=== PATIENT | male | born 1950 | race Caucasian/White ===

== ENCOUNTER 2017-07-19 12:40 | Inpatient (IN) | payer MEDICARE, BC ==
[2017-07-19] MEDS ORDERED: NS 0.9% 1000 ML* 1,000 ML IV SCH (13:45)
[2017-07-19 14:39] LABS: Urine Bacteria Absent (Absent); Urine Bilirubin Negative (Negative); Urine Glucose Negative (Negative); Urine Nitrite Negative (Negative)
[2017-07-19] MEDS ORDERED: Ondansetron INJ* 2 MG/ML VIAL IV PRN (14:48)
[2017-07-19] MEDS ORDERED: Albuterol 2.5 MG/3 ML NEB.SOL* (0.083%) INH PRN (14:51)
[2017-07-19 15:37] LABS: Hematocrit 37 % (42-52); Hemoglobin 12.1 g/dl (14.0-18.0); Mean Corpuscular HGB Conc 33 g/dl (31-36); Mean Corpuscular Hemoglobin 30 pg (27-31); Mean Corpuscular Volume 92 fL (80-94); Mean Platelet Volume 7 um3 (7.4-10.4); Red Cell Distribution Width 17 % (10.5-15); White Blood Count 8.9 10^3/ul (3.5-10.8)
--- NOTE | 2017-07-19 15:39 | RAD ---
INDICATION: Altered mental status COMPARISON: CT of the brain from the same date from an outside institution. TECHNIQUE: Contiguous axial sections of the brain were obtained from the skull base to the vertex without contrast. FINDINGS: The ventricles, cisterns and sulci are within normal limits. The hampton-white matter differentiation is adequately maintained and there is no sulcal effacement. No significant focal abnormality or mass effect is present. There is no evidence for intracranial hemorrhage. No significant focal osseous abnormality is present. There is mild mucosal thickening of the left maxillary sinus. IMPRESSION: Mild paranasal sinus mucosal thickening in this otherwise normal CT of the brain.
--- NOTE | 2017-07-19 15:44 | RAD ---
INDICATION: Shortness of breath. COMPARISON: None. TECHNIQUE: Single AP portable view of the chest was obtained. FINDINGS: Image quality is compromised due to the relative inferiority of a portable chest x-ray. The heart and mediastinum exhibit normal size and contour. There is faint linear density at the left lung base and to a lesser extent the medial aspect of the right lung base. The lungs are otherwise adequately aerated. The pulmonary vasculature is slightly engorged and indistinct. This is similar in appearance to the prior chest x-ray downloaded from an outside institution of an unknown date. Visualized bones are normal for the patient's age. IMPRESSION: In the correct clinical setting chest x-ray findings could be compatible with pulmonary edema.
[2017-07-19 15:46] LABS: Anion Gap 7 mmol/L (2-11); BUN/Creatinine Ratio 17.9 (8-20); Blood Urea Nitrogen 56 mg/dL (6-24); C Reactive Protein 40.87 mg/L (< 5.00); CO2 Carbon Dioxide 28 mmol/L (22-32); Calcium 9.2 mg/dL (8.6-10.3); Chloride 101 mmol/L (101-111); EGFR African American 25.7 (>60); Glucose 105 mg/dL (70-100); Potassium 3.5 mmol/L (3.5-5.0); Sodium 136 mmol/L (133-145)
[2017-07-19 16:09] LABS: ALT 19 U/L (7-52); AST 47 U/L (13-39); Albumin 2.7 g/dL (3.2-5.2); Alkaline Phosphatase 73 U/L (34-104); Globulin 4.9 g/dL (2-4); Indirect Bilirubin 0.8 mg/dL (0.3-1.0); Total Protein 7.6 g/dL (6.4-8.9)
[2017-07-19 16:26] LABS: Folate 10.86 ng/mL (>3.99)
[2017-07-19 16:27] LABS: Vitamin B12 > 1450 pg/mL (180-914)
[2017-07-19 16:31] LABS: Erythrocyte Sed Rate 84 mm/Hr (0-40)
[2017-07-19] MEDS: Mometasone 220 MCG MDI INH SCH (18:10)
--- NOTE | 2017-07-19 18:55 | ED ---
Brittany Sales Abhishek, scribed for Ant Angela MD on 07/19/17 at 1330 . Neurological HPI - HPI Summary HPI Summary: This patient is a 66 year old M BIBA from [facility] accompanied by with a chief complaint of neurological deficit. Patient reports he has fallen once recently, but had previous falls in the past year. Patient s family/galley worker states patient fell in the kitchen and in the middle of night (0300) and patient was restless, agitated, bleeding from his elbow wrist and LE (scraped). Patients family/galley worker also reports edema on the right arm, poor memory, tremors, weakness, lack of sleep, intermittent confusion, edema at the ankles, deficits in motor capabilities, aphasia (searching for words) and worsening conditions of bradykinesia (slow motion movements) Onset was a few weeks ago but worse since a few days ago. MRI was ordered by Dr. Romero previously which had a normal impression. The patient rates the pain 0/10 in severity. Symptoms aggravated by nothing. Symptoms alleviated by nothing. Patient ambulates with a walker. - History of Current Complaint Chief Complaint: EDGeneral Stated Complaint: WEAKNESS Time Seen by Provider: 07/19/17 12:47 Hx Obtained From: Patient, Family/Screen Roller Onset/Duration: Gradual Onset, Started weeks ago - 2 weeks ago, Still Present, Worse Since - few days ago Timing: Constant Pain Intensity: 0 Pain Scale Used: 0-10 Numeric Character: Weak, Motor Weakness - bradykinesia, Impaired Speech - aphasia, Confusion, Other: - reports edema on the right arm and ankles, lack of sleep, poor memory and tremors Aggravating: Nothing Alleviating: Nothing Associated Signs and Symptoms: Positive: Confusion, Weakness, Impaired Speech - Allergy/Home Medications Allergies/Adverse Reactions: Allergies Allergy/AdvReac Type Severity Reaction Status Date / Time Statins Allergy Intermediate Muscle Ache Verified 07/14/17 09:55 JAIME Inhibitors Allergy KIDNEYS/HEA Verified 07/14/17 09:55 RT Niacin Allergy FEELS LIKE Verified 07/14/17 09:55 HE IS ON FIRE Quinolones Allergy HEART Verified 07/14/17 09:55 ARBS Allergy Unknown Uncoded 07/19/17 13:22 Reaction Details Home Medications: Home Medications Caltrate 600+D Plus [place] 600-800 mg-Unit 1 tab PO DAILY 07/19/17 [History Confirmed 07/19/17] Eszopiclone 1 mg PO DAILY 07/19/17 [History Confirmed 07/19/17] Qvar 80 MCG MDI(NF) 2 puff INH BID 07/19/17 [History Confirmed 07/19/17] Stiolto Respimat 2.5-2.5 Mcg/Act 2.5 mcg INH DAILY 07/19/17 [History Confirmed 07/19/17] Vitamin D2 1.25 mg PO WEEKLY 07/19/17 [History Confirmed 07/19/17] hydrOXYzine HCL TAB* 25 mg PO DAILY PRN 07/19/17 [History Confirmed 07/19/17] PMH/Surg Hx/FS Hx/Imm Hx Endocrine/Hematology History: Denies: Hx Diabetes Cardiovascular History: Reports: Hx Hypertension - CONTROLLED WITH MEDS Denies: Hx Pacemaker/ICD Respiratory History: Reports: Hx Chronic Obstructive Pulmonary Disease (COPD) History: Reports: Hx Renal Disease Sensory History: Denies: Hx Hearing Aid Psychiatric History: Denies: Hx Panic Disorder - Surgical History Surgery Procedure, Year, and Place: left knee replacement, colostomy and reversal,basal skin removals. POLYPS REMOVED FROM STOMACH/COLON/DUODENUM Infectious Disease History: No Infectious Disease History: Denies: Traveled Outside the [place] in Last 30 Days - Social History Alcohol Use: Daily Substance Use Type: Reports: None Smoking Status (MU): Never Smoked Tobacco Review of Systems Constitutional: Negative Eyes: Negative ENT: Negative Cardiovascular: Negative Respiratory: Negative Gastrointestinal: Negative Genitourinary: Negative Positive: Edema - edema at the ankles and right arm Skin: Negative Neurological: Other - deficits in motor capabilities (bradykinesia), confusion, tremors, and poor memory Positive: Weakness, Numbness, Slurred Speech Psychological: Normal All Other Systems Reviewed And Are Negative: Yes Physical Exam - Summary Physical Exam Summary: VITAL SIGNS: Reviewed. GENERAL: ~Patient is a well-developed and nourished elderly (MALE) who is lying comfortable in the stretcher. ~Patient is not in any acute respiratory distress. HEAD AND FACE: No signs of trauma. ~No ecchymosis, hematomas or skull depressions. No sinus tenderness. EYES: PERRLA, EOMI x 2, No injected conjunctiva, no nystagmus. No photophobia. EARS: Hearing grossly intact. Ear canals and tympanic membranes are within normal limits. MOUTH: Oropharynx within normal limits. NECK: Supple, trachea is midline, no adenopathy, no JVD, no carotid bruit, no c- spine tenderness, neck with full ROM. No meningeal signs, no Kernig's or brudzinskis signs. CHEST: Symmetric, no tenderness at palpation LUNGS: Clear to auscultation bilaterally. No wheezing or crackles. CVS: Sinus bradycardia ABDOMEN: Soft, non-tender. No signs of distention. No rebound no guarding, and no masses palpated. Bowel sounds are normal. EXTREMITIES: FROM in all major joints, no edema, no cyanosis or clubbing. NEURO: Alert and oriented x 3, Slow response SKIN: Dry and warm GCS: 15 Musculoskeletal" , 2+ edema in the lower extremity Triage Information Reviewed: Yes Vital Signs On Initial Exam: Initial Vitals Temp Pulse Resp BP Pulse Ox 97.3 F 69 20 121/75 98 07/19/17 12:43 07/19/17 12:43 07/19/17 12:43 07/19/17 12:43 07/19/17 12:43 Vital Signs Reviewed: Yes Diagnostics - Vital Signs Vital Signs Temp Pulse Resp BP Pulse Ox 07/19/17 12:43 97.3 F 69 20 121/75 98 - Laboratory Result Diagrams: 07/19/17 15:24 07/19/17 15:24 Lab Statement: Any lab studies that have been ordered have been reviewed, and results considered in the medical decision making process. - Radiology Chest X-ray Radiology Interpretation Completed By: Radiologist - CXR reveals, per radiologist, In the correct clinical setting chest x-ray findings could be compatible with pulmonary edema. ED physician has reviewed this radiology report and agrees. - CT Brain CT CT Interpretation Completed By: Radiologist - Brain CT reveals Mild paranasal sinus mucosal thickening in this otherwise normal CT of the brain. ED physician has reviewed this radiology report and agrees. Course/Dx - Course Assessment/Plan: This patient is a 66 year old M BIBA from [facility] accompanied by with a chief complaint of neurological deficit. Patient reports he has fallen once recently, but had previous falls in the past year. Patients family/galley worker states patient fell in the kitchen and in the middle of night (0300) and patient was restless, agitated, bleeding from his elbow wrist and LE (scraped). Patients family/galley worker also reports edema on the right arm, poor memory, tremors, weakness, lack of sleep, intermittent confusion , edema at the ankles, deficits in motor capabilities, aphasia (searching for words) and worsening conditions of bradykinesia (slow motion movements) Onset was a few weeks ago but worse since a few days ago. MRI was ordered by Dr. Romero previously which had a normal impression. We discussed with Dr. López who is covering for Dr. Romero and she recommends for the patient to be admitted to the hospitalist, a possible MRI of the brain and she will check in the following morning. The blood work was done at [facility] and showed dehydration and acute and chronic renal failure. The patient will be given IV fluids and the patient continues to be hemodynamically Stable. I discussed physical findings and recommendation from Dr. López with Dr. Lyons, and she accepted the patient for admission and the diagnosis will be acute changes in mental status, dehydration, acute and chronic renal failure. - Differential Dx Differential Diagnoses Neuro: Positive: Cerebrovascular Accident, Seizure Disorder, Transient Ischemic Attack - Diagnoses Provider Diagnoses: Altered mental status, Dysphagia, Weakness - Physician Notifications Discussed Care Of Patient With: Sheree Lyons Time Discussed With Above Provider: 13:40 Instructed by Provider To: Admit As Inpatient Discharge - Discharge Plan Condition: Stable Disposition: ADMITTED TO [facility] The documentation as recorded by the Brittany davalos Abhishek accurately reflects the service I personally performed and the decisions made by me, Ant Angela MD.
--- NOTE | 2017-07-19 20:54 | HP ---
CC: Dr. Shepard ; Dr. López; Dr. Romero * HISTORY AND PHYSICAL: DATE OF ADMISSION: 07/19/17 PRIMARY CARE PROVIDER: Dr. Shepard, [facility] ATTENDING PHYSICIAN WHILE IN THE HOSPITAL: Dr. Kiarra Garces * *(report dictated by Jose Durham NP). CONSULTING NEUROLOGIST: Dr. López. CHIEF COMPLAINT: 1. Weakness. 2. Fall. HISTORY OF PRESENT ILLNESS: Mr. 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 He comes in today stating that about 3 o'clock in the morning, the patient sustained a fall. The called [facility]. They came and did a lift assist. He got back into his chair, but the noted that later on in the morning, about an hour or two later, he was getting up, acting confused, having some trouble with words, having trouble with memory. In addition to this, she noted that when he walked into a corner of the room, he could not figure out how to get out of the corner. She says that this was not her and he was obviously confused and she brought him into the hospital. More importantly though, over the last couple of months the patient has had a progressive worsening decline. He has had trouble walking. He has been shuffling more. He has had trouble lifting his legs at times. He has been having worsening numbness to his lower extremities. Also there has been some trouble with cognition. In addition, there is also trouble with memory loss, particularly short-term memory. The had sought care with Dr. Romero who they had seen in the past. An MRI was ordered outpatient which essentially showed diffuse involutional change. The patient was evaluated at [facility] and they were concerned that the patient might need a neurological evaluation, so he was sent here. There has been reports that the patient was having a worsening cough for the last few weeks. It has been productive of yellow sputum but no worsening shortness of breath. No fevers, no chills. There has been no dysuria or frequency. There has been no loss of consciousness , seizures or any chest pain. Because of the fact that it was felt that he would need neurology evaluation, he was sent to [facility]. We were asked to evaluate for admission. PAST MEDICAL HISTORY: Significant for: 1. Torres's. 2. COPD. 3. Neuropathy. 4. Diverticulitis. 5. KING. 6. GERD. 7. Hypertension. 8. Hyperlipidemia. 9. Right bundle branch block. 10. CKD stage 4. PAST SURGICAL HISTORY: The patient has had a: 1. Cholecystectomy. 2. He has had a left total knee replacement. 3. He has had an appendectomy. 4. He has also had a colostomy with reversal. MEDICATIONS: Home meds according to the list that he provided include: 1. QVAR 2 puffs inhaled b.i.d. 2. Hydroxyzine 25 mg p.o. daily. 3. Vitamin D2, 1.25 mg p.o. weekly. 4. Eszopiclone 1 mg at bedtime. 5. Stiolto Respimat 2.5 mcg daily. 6. Caltrate with vitamin D 1 tablet p.o. daily. 7. Fenofibric acid 48 mg p.o. daily. 8. Lovaza 1 g p.o. b.i.d. 9. Spironolactone 25 mg daily. 10. Synthroid 137 mcg daily. 11. Aspirin 81 mg daily. 12. Gabapentin 200 mg daily. 13. Amiodarone 20 mg daily. 14. B12, 1000 mcg p.o. daily. 15. Zetia 10 mg p.o. daily. 16. Carvedilol 12.5 mg p.o. b.i.d. 17. Ventolin 2.5 mg inhaled 4 times a day as needed. 18. Potassium chloride 20 mEq p.o. daily. 19. Furosemide 80 mg p.o. b.i.d. 20. Flonase 50 mcg nasally daily. 21. Protonix 40 mg daily. 22. Allopurinol 300 mg daily. ALLERGIES TO MEDICATIONS: Include STATINS, JAIME INHIBITORS, NIACIN, QUINOLONES, and ARBs. FAMILY HISTORY: Essentially was reviewed, noncontributory. There was no report of neurological diseases in the family. No reports of MIs. SOCIAL HISTORY: The patient does not smoke. He does not drink. He lives with his . Surrogate decision maker is his . REVIEW OF SYSTEMS: There is no documented fever. He denied having any significant weight change. There was no double vision. He denies having any ear discharge. There is no rhinorrhea. No sore throat. No thyroid enlargement. Denied having any chest pain. No orthopnea. No nocturnal dyspnea. There is no abdominal pain. No nausea. No vomiting. No dysuria. No frequency. No seizure. No loss of consciousness. No pruritus and no skin ulcerations. Review of 14 systems completed, all others negative. PHYSICAL EXAMINATION GENERAL: At this time, Mr. Medellin is a 66-year-old male patient. He is sitting in the ER stretcher. He does not appear to be in any acute distress. VITAL SIGNS: Blood pressure 106/59, pulse 77, respirations 20, O2 sat 98%, and temperature 97.3. HEENT: Head: Atraumatic, normocephalic. Eyes: EOMs are intact. Sclerae anicteric and not pale. Throat: Oral mucosa appears to be dry. No oropharyngeal erythema. NECK: Supple. LUNGS: Clear to auscultation bilaterally. No wheezes, rales, or rhonchi. HEART: Sounds S1, S2. Regular rate and rhythm. No murmurs, rubs, or gallops. ABDOMEN: Soft, flat, nontender. Bowel sounds present. EXTREMITIES: Pulses were 2+ throughout. He did have +2 pitting edema bilaterally. He had 5/5 strength in the lower extremities with plantar and dorsiflexion of the ankle and about 4/5 strength lifting the legs off the bed. He did have 5/5 strength with flexion and extension of the knee. NEUROLOGIC: He is awake, he is alert. He knows where he is. He is oriented to place, time, and self. His ehs engineer were equal. His tongue was midline. Finger to nose was intact bilaterally. He had decreased sensation bilaterally in the lower extremities particularly in his feet. He had no facial drooping. His speech was clear. It was delayed, but it was appropriate. He had no gross obvious focal deficits. He did have trouble with short-term memory. He did tell me twice and forgot that he had told me once already that he was not diagnosed with Parkinson's. SKIN: Intact. DIAGNOSTIC STUDIES/LAB DATA: UA here today is negative. He did have WBC of 8.0, RBC 3.94, hemoglobin of 11.9, hematocrit 35.6, platelet count of 283,000. His glucose was 145, BUN 59, creatinine was 3.5. Apparently, his last creatinine was 3.1. Sodium was 136, potassium 3.9, chloride of 102, bicarb 26, albumin was 2.1. CK was normal at 62. Troponin was negative. pH 7.49, pCO2 was 35. He apparently had an EKG over at [facility] which showed a right bundle branch block, rate of 60. No ST elevations or T-wave inversions were noted. There was a CT brain, impression: No acute disease. He had a chest x-ray as well, which showed poor inspiration and bibasilar atelectasis. Old medical records were reviewed. ASSESSMENT AND PLAN: Mr. Medellin is a 66-year-old male patient with complex medical history coming into the ER today with falls and weakness. He will admitted under observation status for: 1. Altered mental status and weakness. It seems he has been getting progressively worse in the last couple of months and today, it seemed to be much worse. The differential is broad here. He certainly could have a metabolic process or infectious process going on. Plan is to check his urine and I am going to repeat the x-ray as it was a poor film. We will get a repeat CT of the brain as when I looked at it, it does look like he has calcifications in the ventricles, but I want to make sure that it is stable and there is no intracranial hemorrhage or bleeding which I do not think there is, because he is nonfocal on exam and he is answering questions appropriately and does not appear to be somnolent, but I would like to repeat this. We will get an MRI of the brain per recommendations of Dr. López. In addition to this, we will get neuro checks every 2 hours. We will check sputum and rapid flu swab as well, as he has been coughing a little bit more. I do not think he needs antibiotics just yet. If he spikes a fever, I will put him on antibiotics. We will go ahead and get a B12, folate level, ESR, CRP as well and we will follow him closely. 2. Neuropathy. Continue with the meds as prescribed. 3. Obstructive sleep apnea. I stressed the importance of him using his CPAP, but he says its mask is not comfortable. 4. Chronic obstructive pulmonary disease. We will continue meds as prescribed. 5. Neuropathy. Continue meds as prescribed. 6. Gastroesophageal reflux disease. Continue PPI therapy. 7. Hyperlipidemia. Continue his current medical regimen. 8. Hypertension. Continue meds as prescribed. 9. Chronic kidney disease. We will follow his creatinine. He does appear to be a little dry. He got fluids in [facility], so I am going to hold his diuretics now and we can probably restart them tomorrow depending on what his labs show in the morning. 10. Code status, full code. 11. Fluids, electrolytes, nutrition. He can have a heart healthy diet. 12. DVT prophylaxis. He will be placed on SCDs until the repeat CAT scan. TIME SPENT: Time spent on the admission was approximately 60 minutes; greater than half the time was spent [id number] with the patient obtaining my history and physical, other half of the time spent going over the plan of care with the patient and implementing plan of care. I did discuss plan of care with my attending, Dr. Garces, she is in agreement. JOSE DURHAM, TUBE SIZER AND CUTTER OPERATOR [id number]/CPS #: [id number] HECTOR
[2017-07-19] MEDS ORDERED: BECLOMETHASONE 80 MCG INH SCH (21:00)
[2017-07-19] MEDS: Carvedilol TAB* 25 MG PO SCH (21:25)
[2017-07-20] MEDS: Acetaminophen TAB* 325 MG PO PRN (03:47)
[2017-07-20] MEDS: Levothyroxine TAB* 137 MCG TAB PO SCH (05:20)
[2017-07-20 05:33] LABS: Hematocrit 33 % (42-52); Hemoglobin 10.7 g/dl (14.0-18.0); Mean Corpuscular HGB Conc 33 g/dl (31-36); Mean Corpuscular Hemoglobin 30 pg (27-31); Mean Corpuscular Volume 91 fL (80-94); Mean Platelet Volume 8 um3 (7.4-10.4); Red Blood Count 3.59 10^6/ul (4.0-5.4); Red Cell Distribution Width 17 % (10.5-15); White Blood Count 8.2 10^3/ul (3.5-10.8)
[2017-07-20 06:06] LABS: BUN/Creatinine Ratio 17.7 (8-20); Calcium 8.6 mg/dL (8.6-10.3); EGFR African American 27.5 (>60); EGFR Non-African American 21.4 (>60); Potassium 3.2 mmol/L (3.5-5.0)
[2017-07-20] MEDS ORDERED: Potassium Chlor TAB* 20 MEQ TAB.ER PO ONE (07:29)
[2017-07-20] MEDS: Amiodarone TAB* 200 MG PO SCH (08:00)
[2017-07-20] MEDS: Fluticasone NASAL SPRAY 50MCG* 16 gm SPRAY BTL NASAL SCH (08:00)
[2017-07-20] MEDS: Allopurinol TAB* 300 MG PO SCH (08:00)
[2017-07-20] MEDS: Gabapentin CAP(*) 100 MG PO SCH (08:01)
[2017-07-20] MEDS: Omeprazole CAP* 20 MG PO SCH (08:01)
[2017-07-20] MEDS: Carvedilol TAB* 25 MG PO SCH ×2 (08:02→20:54)
[2017-07-20] MEDS: Ezetimibe TAB* 10 MG PO SCH (08:03)
[2017-07-20] MEDS ORDERED: Aspirin EC TAB* 325 MG PO SCH (09:00)
[2017-07-20] MEDS: STIOLTO RESPIMAT INH SCH (11:11)
--- NOTE | 2017-07-20 11:31 | PN ---
Subjective Date of Service: 07/20/17 Interval History: This is a 66 yo gentleman with a h/o Aamir's with associated CKD and peripheral neuropathy who has had some progressively worsening symptoms including confusion and increasing weakness. His symptoms had become dramatically worse in the 2 days leading up to his admission and he was transferred from [facility] for neurologic evaluation. He was started on lactulose yesterday evening when his ammonia level was noted to be moderately elevated. This am, patient feels slightly better. States that he is able to navigate the use of a walker and his mental status is slightly improved. Denies JOHN, vision changes, abdominal pain, n/v. He has had multiple loose BMs since starting the lactulose. He and his report that he has received the diagnosis of cirrhosis and has been seen by sandfill operator, Dr Alves, out of [place]. Objective Active Medications: Acetaminophen (Tylenol Tab*) 650 mg PO Q4H PRN PRN Reason: FEVER/PAIN Last Admin: 07/20/17 03:47 Dose: 650 mg Albuterol (Ventolin 2.5 Mg/3 Ml Neb.Cinthia*) 2.5 mg INH QID PRN PRN Reason: rescue inhaler Allopurinol (Zyloprim Tab*) 300 mg PO DAILY [facility] Last Admin: 07/20/17 08:00 Dose: 300 mg Amiodarone HCl (Cordarone Tab*) 200 mg PO DAILY [facility] Last Admin: 07/20/17 08:00 Dose: 200 mg Aspirin (Ecotrin Ec Tab*) 81 mg PO DAILY [facility] Carvedilol (Coreg Tab*) 12.5 mg PO BID [facility] Last Admin: 07/20/17 08:02 Dose: 12.5 mg Cetirizine HCl (Zyrtec*) 10 mg PO DAILY [facility] PRN Reason: Protocol Ezetimibe (Zetia Tab*) 10 mg PO DAILY [facility] Last Admin: 07/20/17 08:03 Dose: 10 mg Fluticasone Propionate (Flonase Nasal [place] 50mcg*) 1 spray NASAL DAILY [facility] Last Admin: 07/20/17 08:00 Dose: 1 spray Gabapentin (Neurontin Cap(*)) 200 mg PO DAILY [facility] Last Admin: 07/20/17 08:01 Dose: 200 mg Lactulose (Lactulose*) 15 ml PO TID [facility] Levothyroxine Sodium (Synthroid Tab*) 137 mcg PO 0600 [facility] Last Admin: 07/20/17 05:20 Dose: 137 mcg Mometasone Furoate (Asmanex 220 Mcg Mdi *) 2 puff INH QPM [facility] Last Admin: 07/19/17 18:10 Dose: 2 puff Stiolto Respimat 2.5 -2.5 Mcg/Act ( Tiotropium And Olodaterol) 2.5 mcg INH DAILY [facility] Last Admin: 07/20/17 11:11 Dose: Not Given Omeprazole (Prilosec Cap*) 20 mg PO DAILY [facility] Last Admin: 07/20/17 08:01 Dose: 20 mg Ondansetron HCl (Zofran Inj*) 4 mg IV Q6H PRN PRN Reason: NAUSEA Vital Signs: Temp Pulse Resp BP Pulse Ox 97.7 F 57 18 129/63 99 07/20/17 10:53 07/20/17 10:53 07/20/17 10:53 07/20/17 10:53 07/20/17 10:53 Oxygen Devices in Use Now: None Appearance: Alert and somewhat chronically ill appearing gentleman accompanied by his and in NAD Respiratory: Symmetrical Chest Expansion and Respiratory Effort, Clear to Auscultation Cardiovascular: NL Sounds; No Murmurs; No JVD, RRR Abdominal: NL Sounds; No Tenderness; No Distention Extremities: - - 1+ LE edema Neurological: Alert and Oriented x 3, - - alert, speech somewhat slowed with slowed response times Result Diagrams: 07/20/17 04:47 07/20/17 04:47 Microbiology and Other Data: Microbiology 07/19/17 16:35 Gram Stain - Final Sputum Expectorated 07/19/17 15:23 Nasal Screen MRSA (PCR)(SHAUN) - Final Nasal Mrsa Negative 07/19/17 14:26 Legionella Urinary Antigen - Final Urine Negative Legionella Streptococcus pneumoniae Ag Screen - Final Negative S. pneumo Antigen 07/19/17 15:23 Influenza Types A,B Antigen (SHAUN) - Final Nasal Specimen received for Influenza A/B Molecular testing Assess/Plan/Problems-Billing Assessment: This is a 66 yo male with history of Aamir's with associated CKD III-IV, peripheral neuropathy, COPD, KING, anxiety, HTN, HLD, GERD who presented with c/ o increasing weakness and confusion. - Patient Problems (1) Encephalopathy Comment: Appreciate neurology's input Likely multifactorial due to liver disease and uremia Improving with reduction in diuretics and initiating lactulose There has been a question of Parkinson's disease, which may be responsible for some of his symptoms but empiric dopaminergic therapy is not recommended by neurology at this time due to his cognitive symptoms and other complicating medical problems (2) Cirrhosis Comment: Sounds like this is a relatively new diagnosis, but likely a large contributor to his current progressive symptoms Evidence of some chronic liver failure with elevated INR, low albumin but normal platelets (3) CKD (chronic kidney disease) Comment: Stage III-IV at baseline Associated with Kamilah's Cr slightly above baseline at admission Diuretics held, can resume at lower dose at discharge (4) Kamilah's syndrome Comment: Associated CKD (5) KING (obstructive sleep apnea) Comment: General compliance with CPAP, but unable to tolerate recently Cont Flonase and start antihistamine to see if his congestion improves to the point that he can tolerate CPAP again (6) Hypertension Comment: Normotensive Home diuretics held, but otherwise cont usual antihypertensive medications (7) COPD (chronic obstructive pulmonary disease) Comment: No acute exacerbation (8) Hyperlipidemia (9) Full code status (10) DVT prophylaxis Comment: SQ heparin Status and Disposition: Transition to inpatient. Anticipate dc home tomorrow with home nursing services.
--- NOTE | 2017-07-20 12:08 | CONS ---
CC: Dr. Shepard; Dr. Romero * CONSULTATION REPORT: DATE OF CONSULTATION: 07/20/17 LOCATION: He is currently in room 439. REASON FOR CONSULTATION: Weakness and confusion. HISTORY OF PRESENT ILLNESS: Mr. Medellin is a very nice 66-year-old gentleman. He has multiple medical problems including Kamilah's granulomatosis with kidney involvement, chronic kidney disease, unclear of the baseline creatinine, but it appears it is below 3, COPD, neuropathy, diverticulitis, GERD, hypertension, obstructive sleep apnea previously on a CPAP, but unable to wear it for the last month, hyperlipidemia, right bundle branch block, and stage 4 kidney disease. He also has a history of heavy tobacco use, quit in the and a history of heavy alcohol use. He quit heavy drinking about a year ago, but has been drinking off and on till about November or December. He has been evaluated by Dr. Romero as an outpatient. He has been seen several times, most recently was seen several weeks ago and was found to be weakening, having difficulty with his gait, some confusion. There has been some question about Parkinson's disease in the past, but Dr. Romero felt like it was probably more related to a multifactorial metabolic encephalopathy given his chronic renal and liver disease as well as his neuropathy. An MRI was ordered. It was done on 07/16/17 several days prior to admission. The MRI was reviewed, shows no acute abnormality, shows some chronic age related atrophy that are diffuse in nature. He was to follow up with Dr. Romero but subsequently came to the hospital. His is at the bedside, who was able to provide me some supplemental history. She states that they moved into their new home approximately [id number]-half years ago in October 2015. At that time, he was having some difficulty walking. It seemed to be progressing and over the last year, she notes worsening walking, some mental status changes. He has fallen once in the past, but in the last month, he has had a more dramatic decline. His states that he has been much more confused at times that his gait has become much more tenuous. He is using a walker almost planning specialist at this point. He has had trouble getting up out of chairs and his states that he has not been acting his usual self. He does wear a CPAP normally, but in the last month has had most nasal stuffiness, has an appointment with an ENT, but has not been wearing his CPAP regularly. His feels like he has been more exhausted lately. He also is not on lactulose at home. He is followed for his kidney disease, but may have been dehydrated in the last several days. On the day of admission, he did fall at 3 in the morning, his tried to get him up , but was unable to. EMS was called and they were able to get him up and did not take him to the hospital. Later in the morning, his noted that he was trying to walk around and he would walk into a corner and sit there having difficulty moving. He was confused, very unsteady on his feet, seemed weaker and so she brought him to the ER. CT of the head was done, which showed no bleeding, no obvious acute changes. Some atrophy was noted. The patient states that he did not remember hitting his head. There was no loss of consciousness. He does not remember being lightheaded. No chest pain or shortness of breath at the time above his baseline. He was sitting in a chair in the kitchen when he tried to get up. He states the chair is leather and it is slippery and he may have slipped out of the chair, but in any event, could not get up from the floor. Denies any current pain. Does have an abrasion on his right leg. This morning, the nurse is at the bedside, his is at the bedside. The patient is able to converse and gives me some pretty good history , although may be slightly confused. His was able to supplement that history. Other than the fall, there has been no dramatic acute changes. It has been more of a slow steady decline, more rapid in the last month. There has been no reported fevers, chills, nausea or vomiting. He does have some urinary hesitancy. He has had some cough productive of yellow sputum but no fevers, no dysuria. There is no history of seizures reported. Initially, he was taken to [facility] from his home. He was subsequently transferred here for further workup. PAST MEDICAL HISTORY: As noted above. PAST SURGICAL HISTORY: Includes a colostomy with reversal appendectomy, left knee replacement, and cholecystectomy. MEDICATIONS AT HOME: Include: 1. QVAR 2 puffs inhale b.i.d. 2. Allopurinol 300 mg daily 3. Protonix 40 mg daily. 4. Flonase 50 mcg nasal daily. 5. Furosemide 80 mg p.o. b.i.d. 6. Potassium chloride 20 mEq p.o. daily. 7. Ventolin 2.5 mg inhaled 4 times a day. 8. Carvedilol 12.5 mg p.o. b.i.d. 9. Zetia 10 mg p.o. daily. 10. B12 1000 mcg p.o. daily. 11. Amiodarone 20 mg daily. 12. Gabapentin 200 mg daily. 13. Aspirin 81 mg daily. 14. Synthroid 137 mcg daily. 15. Spironolactone 25 mg daily. 16. Lovaza 1 g p.o. b.i.d. 17. Fenofibrate 48 mg p.o. daily. 18. Caltrate with vitamin D 1 tablet p.o. daily. 19. Stiolto Respimat 2.5 mcg daily. 20. Eszopiclone 1 mg at bedtime. 21. Vitamin D2 1.25 mg weekly. 22. Hydroxyzine 25 mg p.o. daily. ALLERGIES: Include ARBs, QUINOLONES, JAIME INHIBITORS, NIACIN, and STATINS. FAMILY HISTORY: His notes a family history of Parkinson's disease in several relatives, but no other neurologic diseases in the family. No autoimmune disease is reported. SOCIAL HISTORY: He is a retired principal. He has previous heavy alcohol history as noted above, previous tobacco history as noted above up to 2 packs a day for many years, but he quit years ago. He lives at home with his in a house that is handicap accessible. REVIEW OF SYSTEMS: Review of systems in 14 organ systems as noted above, otherwise negative. PHYSICAL EXAMINATION: Vital Signs: Temperature of 97.8, pulse rate of 57, respiratory rate of 18, pulse ox of 97%, 145/62 blood pressure, have been in the 110s to 120s/60s. In general, he is a well-nourished, well-developed obese gentleman, sitting in his chair. His is at the bedside. HEENT: He is normocephalic/atraumatic. Sclerae are anicteric. Mucous membranes are dry. Oropharynx is clear. Nares are patent. He does have some stigmata of chronic liver disease including redness in the cheeks, telangiectases as well. Neck is supple. No thyromegaly. No carotid bruits. Chest: Clear to auscultation bilaterally. Cardiovascular: Regular rate and rhythm. No murmurs are appreciated. Abdomen is obese, nontender. Extremities: There is no cyanosis, mild edema bilaterally, 1+ in the feet to the shins rather with mild pitting. He has multiple scrapes and bruises in his legs in various stages of healing. He has bruising in his arms. There is no significant palmar erythema. He does have asterixis on examination, 3 to 4 beats with his hands extended and his wrist extended. On neurologic exam, he is awake, he is alert, he is oriented to person, to place, to 2016, did not know what date it was or day of the week. His speech is fluent. There is no significant dysarthria. Repetition is intact. His recall appears to be relatively preserved. Vocabulary appears intact. His mood is dysthymic. Affect looks congruent. Cranial nerves, his pupils are equally round and reactive to light. Visual pastor are full. Extraocular muscles are intact without diplopia. No nystagmus was appreciated. His face is symmetric. His facial sensation is intact to light touch. Hearing is intact bilaterally. Tongue is midline. Palate raises symmetrically. Sternocleidomastoid and trapezius are both 5/5. Motor Exam: He has good effort and good resistance in the upper extremities 5/5. Bulk is normal. His tone is slightly increased with distraction in the right upper extremity, normal in the left. In the lower extremities, he has some proximal weakness 4/5, distally he is 5/5. Tone is generally normal throughout in the lower extremities. Sensation is markedly reduced to all modalities in the legs to the knees with some loss of light touch and pinprick in the fingertips. His [id number] and rapid alternating movements are slow. There is no obvious tremor. There is no resting tremor. There is no past pointing. There is no obvious ataxia on examination. Gait: He had some difficulty arising from his chair. He needed help. He did walk with a walker with physical therapy present. He has a wide based, mildly shuffling gait, slightly stooped, difficulty turning with some mild turning block. LABORATORY DATA: Lab work includes a white count this morning of 8.2, hemoglobin of 10.7, hematocrit of 33, platelet count of 235, percent monocytes 11.4, absolute monocytes 0.9. ESR was 84 yesterday. His INR of 1.14. Chemistry yesterday, BUN of 56, creatinine of 3.12 down to 2.94 today. Glucose of 105 to 104. Total bili of 1.7. Direct bili of 0.9, indirect bili of 0.8, AST of 47, alk phos of 73, ammonia of 72. C-reactive protein of 40.87, albumin of 2.7. B12 greater than 1450, folate of 10.86. TSH of 3.40. Urine was essentially normal with 1+ blood. Influenza negative. Imaging as noted above. He also had a chest x-ray done, which showed the possibility of some pulmonary edema. No obvious infiltrates. ASSESSMENT AND PLAN: Mr. 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 Romero who has been evaluating him. Recent MRI showed no obvious strokes or acute changes but did show atrophy. CT of the head on admission at this visit showed no acute issues. Lab work did reveal elevated ammonia and he had asterixis on examination, also elevated creatinine. Per his report, he thinks that his creatinine normally runs in the mid 2s. On examination, has marked sensory loss in his legs, difficulty ambulating, some confusion, weakness in the lower extremities much greater than the upper extremities, difficulty with his gait. At this point, he does have some mild Parkinsonian features on examination, but my suspicion for underlying Parkinson's disease is low. I suspect that he is suffering from multiple chronic medical issues, which has conspired to create his current condition. Specifically, I think that his creatinine and renal function and liver function have added to his confusion. In addition, he has a history of significant neuropathy of deconditioning, and I think that this has added to his unsteady gait, which likely led to his fall. He also has a history of heavy alcohol use, which is likely contributing to some of his balance issues and possibly memory issues. He has not been wearing his CPAP in the last month and his feels like he is chronically sleepy, which has also likely led to some decompensation. Bottom line, I think the treatment at this point should be aggressive management of his underlying medical issues, physical therapy, occupational therapy for strengthening and balance. I discussed with the patient my concerns and the fact that superintendent terminal, this is going to be an issue of being aggressively proactive with his walking and gait, his balance, all of which will require further physical therapy, close management of his medical conditions. I explained to the and the patient that decompensation and his liver function and kidney function can lead to worsening confusion and weakness. I am going to check some blood work today to look for any evidence of vasculitis given his elevated CRP and ESR. I am also going to check muscle enzymes to make sure we are not dealing with a myopathy, although my suspicion is low. We briefly touched on the fact that he has some Parkinsonian symptoms, although my suspicion for underlying primary Parkinson is low. We discussed the fact that I would not start medications during an acute inpatient admission, especially with his other underlying acute issues as this could worsen his mental status and could cause worsening symptoms. This is something that Dr. Romero can address further as an outpatient. I do not think we need to repeat any imaging at this point. He has had an MRI done recently and at the time was having similar symptoms. He has no new symptoms or findings on examination that would warrant additional imaging. I will continue to follow him closely and make further recommendations if necessary. Thank you for the opportunity to participate in his care. [id number]/[facility] #: [id number] HECTOR
[2017-07-20] MEDS: Cetirizine* 10 MG TAB PO SCH (12:50)
[2017-07-20] MEDS: Heparin VIAL(*) 5000 UNITS/ML VIAL (FIVE THOUSAND) SUBCUT SCH ×2 (12:50→23:27)
[2017-07-20] MEDS: Lactulose* 15 ML UDC PO SCH ×2 (12:50→20:54)
[2017-07-20] MEDS: Aspirin EC Low Dose* 81 MG TAB.EC PO SCH (15:35)
[2017-07-20] MEDS: Mometasone 220 MCG MDI INH SCH ×2 (20:20→21:43)
[2017-07-21] MEDS: Acetaminophen TAB* 325 MG PO PRN (04:09)
[2017-07-21] MEDS: Heparin VIAL(*) 5000 UNITS/ML VIAL (FIVE THOUSAND) SUBCUT SCH (05:15)
[2017-07-21] MEDS: Levothyroxine TAB* 137 MCG TAB PO SCH (05:15)
[2017-07-21 05:51] LABS: Albumin 2.3 g/dL (3.2-5.2); BUN/Creatinine Ratio 17.9 (8-20); Calcium 8.9 mg/dL (8.6-10.3); EGFR African American 31.4 (>60); EGFR Non-African American 24.5 (>60); Globulin 4.1 g/dL (2-4); Potassium 3.8 mmol/L (3.5-5.0); Total Bilirubin 1.5 mg/dL (0.2-1.0); Total Protein 6.4 g/dL (6.4-8.9)
[2017-07-21] MEDS: Lactulose* 15 ML UDC PO SCH (07:51)
[2017-07-21] MEDS: Fluticasone NASAL SPRAY 50MCG* 16 gm SPRAY BTL NASAL SCH (07:51)
[2017-07-21] MEDS: Cetirizine* 10 MG TAB PO SCH (07:53)
[2017-07-21] MEDS: Carvedilol TAB* 25 MG PO SCH (07:53)
[2017-07-21] MEDS: Gabapentin CAP(*) 100 MG PO SCH (07:54)
[2017-07-21] MEDS: Aspirin EC Low Dose* 81 MG TAB.EC PO SCH (07:55)
[2017-07-21] MEDS: Amiodarone TAB* 200 MG PO SCH (07:55)
[2017-07-21] MEDS: Omeprazole CAP* 20 MG PO SCH (07:55)
[2017-07-21] MEDS: STIOLTO RESPIMAT INH SCH (07:55)
[2017-07-21] MEDS: Ezetimibe TAB* 10 MG PO SCH (07:55)
[2017-07-21] MEDS: Allopurinol TAB* 300 MG PO SCH (07:55)
[2017-07-21 11:42] VITALS: BP 131/62
[2017-07-21 11:47] LABS: Complement C3 144 mg/dL (75 - 175)
[2017-07-21 12:04] LABS: Aldolase 4.7 U/L (<7.7)
--- NOTE | 2017-07-21 14:27 | DCNOTE ---
Patient Name: LUZ MEDELLIN Date of : 1950 Patient Status: Inpatient Attending Provider: Kiarra Warren Date: 07/21/17 11:11 Initialization Date: 07/21/17 11:11 Patient: Luz Medellin /Age: 02 1950 Admission Date: 07/19/17 DATE OF ADMISSION: 07/19/2017 DATE OF DISCHARGE: 07/21/2017 DISCHARGING PROVIDER: NOLAN Oneill SUPERVISING PHYSICIAN: Dr. Kiarra Warren PRIMARY CARE PROVIDER: Dr. Drea Perez CONSULTING NEUROLOGIST: Dr. Damaso López PRIMARY NEUROLOGIST: Dr. Max Romero PRIMARY RADIO COMMUNICATIONS SUPERINTENDENT: Ezequiel Livingston PRIMARY DISCHARGE DIAGNOSES: 1. Weakness 2. Confusion 3. Multifactorial metabolic encephalopathy SECONDARY DISCHARGE DIAGNOSES: 1. Kamilah's glomerulonephritis 2. COPD 3. Neuropathy 4. Diverticulitis 5. Chronic Kidney Disease 6. GERD 7. Hyperlipidemia 8. Hypertension 9. Obstructive Sleep Apnea DISCHARGE MEDICATIONS: 1. Albuterol 2.5MG/3ML (0.083%)* [Ventolin 2.5 MG/3 ML NEB.CAHO*] 2.5 mg INH QID PRN 09/15/12 [History Confirmed 07/19/17] 2. Allopurinol 300 mg PO DAILY 09/15/12 [History Confirmed 07/19/17] 3. Amiodarone HCl [Cordarone-] 200 mg PO DAILY 09/15/12 [History Confirmed 07/19] 4. Aspirin 81 mg PO DAILY 09/15/12 [History Confirmed 07/19/17] 5. Carvedilol 12.5 mg PO BID 09/15/12 [History Confirmed 07/19/17] 6. Ezetimibe [Zetia] 10 mg PO DAILY 09/15/12 [History Confirmed 07/19/17] 7. Fluticasone Propionate (Nasal) [Flonase] 50 mcg NA DAILY 09/15/12 [History Confirmed 07/19/17] 8. Gabapentin 200 mg PO DAILY 09/15/12 [History Confirmed 07/19/17] 9. Levothyroxine Sodium [Levothyroxine] 137 mcg PO DAILY 09/15/12 [History Confirmed 07/19/17] 10. Pantoprazole Sodium [Protonix] 40 mg PO DAILY 09/15/12 [History Confirmed ] 11. Fenofibric Acid 48 mg PO DAILY 04/04/14 [History Confirmed 07/19/17] 12. Lovaza 1 gm PO BID 04/04/14 [History Confirmed 07/19/17] 13. Spironolactone TAB* 25 mg PO DAILY 04/04/14 [History Confirmed 07/19/17] 14. Vitamin B 12 1,000 mcg PO DAILY 04/04/14 [History Confirmed 07/19/17] 15. Potassium Chlor TAB* [Klor Con ER TAB 10 MEQ*] 20 meq PO DAILY 02/14/15 [ History Confirmed 07/19/17] 16. Caltrate 600+D Plus [place] 600-800 mg-Unit 1 tab PO DAILY 07/19/17 [History Confirmed 07/19/17] 17. Eszopiclone 1 mg PO DAILY 07/19/17 [History Confirmed 07/19/17] 18. Qvar 80 MCG MDI(NF) 2 puff INH BID 07/19/17 [History Confirmed 07/19/17] 19. Stiolto Respimat 2.5-2.5 Mcg/Act 2.5 mcg INH DAILY 07/19/17 [History Confirmed 07/19/17] 20. Vitamin D2 1.25 mg PO WEEKLY 07/19/17 [History Confirmed 07/19/17] 21. hydrOXYzine HCL TAB* 25 mg PO DAILY PRN 07/19/17 [History Confirmed 07/19/17 ] 22. Cetirizine* [ZyrTEC 10 MG TAB*] 10 mg PO DAILY #30 tab 07/21/17 [Rx] 23. Furosemide TAB* [Lasix TAB*] 40 mg PO BID #60 tab 07/21/17 [Rx] 24. Lactulose* 30 ml PO TID #1 bottle 07/21/17 [Rx] MEDICATION CHANGES: 1. Cetirizine 10 mg daily 2. Furosemide 40 mg twice daily 3. Lactulose 30 mL three times daily DIAGNOSTIC DATA: 1. Brain CT- No active disease 2. Chest X-ray- Suspicious of pulmonary edema HOSPITAL COURSE: This is a 66 year old pleasant male with a history of Kamilah's , previous alcoholism, COPD, hypertension, hyperlipidemia, Neuropathy, Diverticulitis, GERD, and KING who presented to the ED d/t weakness and confusion. The patient states that at approximately 3 AM on the day of admission , he sustained a fall. A local ambulance service assisted the patient to get up and back into bed. A few hours later, the patient's noticed that he was confused and was not acting like himself. Patient's states that he worked his way into a corner with his walker and didn't know what to do from there. Patient's called the ambulance service back which brought him to [facility] and then was ultimately transferred to our ED because of neurological deficits. The patient's states that pt. has become increasingly unsteady with ambulation and has had intermittent confusion over the past month or two. Furthermore, the patient used to wear his CPAP mask regularly, but has been unable to wear CPAP for the last few weeks d/t nasal congestion that elicits a suffocating sensation when the patient attempts to wear his CPAP mask. Patient as well as pt's believe his sleep deprivation has contributed to his worsening condition. Laboratory studies showed a high ammonia level, elevated liver function tests, elevated BUN and creatinine. The patient was admitted for multifactorial metabolic encephalopathy. Neurologist Dr. Damaso López was consulted d/t neurological deficits and agrees with the diagnosis and believes there are no acute neurologic emergencies at this time. Patient was started on lactulose to bring down ammonia levels, and throughout hospital stay, the lactulose has been titrated with a goal of 3-4 soft bowel movements per day. Upon discharge, patient is mentating well and states that he is ready to go home. DISPOSITION AND FOLLOW-UP PLAN: The patient is being discharged home on the above medications. Patient should follow-up with PCP as well as regional environmental manager to monitor encephalopathy. Also, patient should seek an ENT referral for increasing nasal congestion which is preventing pt. from wearing CPAP mask and getting an adequate night of rest. Pt. has also been encouraged to continue PT for leg strengthening to allow the patient to feel more confident while ambulating and to prevent falls.
[2017-07-21 16:03] LABS: C-ANCA Negative (Negative)
--- NOTE | 2017-07-21 20:07 | PN ---
PROGRESS NOTE: DATE OF PROGRESS NOTE: 07/21/17 LOCATION: Current location is 439, bed 1. SUBJECTIVE: Overnight no new issues. He has been more alert and oriented since I saw him yesterday. He has been ambulating with physical therapy and doing well. At times, he wanted to get out of bed unassisted, but he was redirectable. He is very pleasant this morning, answering all questions. He is wanting to go home and feels better. He denies any new symptoms at this time. OBJECTIVE: He has been afebrile. Pulse has ranged from the 50s to 70. Respiratory rate in the mid teens to 26. Blood pressures have been in the 110s to 120s/50s to 60s. I's and O's, intake 2460, output 400. He has been passing gas but no bowel movements reported. In general, he is a well-nourished, well- developed gentleman. He is obese, in no acute distress, sitting in his chair by the bed. He is very pleasant, well groomed. HEENT: He is normocephalic, atraumatic. Sclerae are anicteric. Mucous membranes are moist. Oropharynx is clear. He has some telangiectasias in the cheeks. Neck is supple. Chest is clear to auscultation bilaterally. Cardiovascular is regular rate and rhythm without murmurs. Abdomen is obese, nontender. Extremities: He has got 1+ edema in the feet to shins bilaterally. Skin has multiple scattered bruises, but is warm and dry. On neurologic exam, he is awake, alert. He is oriented x3. Speech is fluent. There is no dysarthria. His recall of recent events is intact. Cranial nerves: Pupils are equal, round, and reactive to light. Extraocular muscles are intact. Visual pastor are full. Face is symmetric. Sensation is intact to light touch. Hearing is intact bilaterally. Tongue is midline. Palate raises symmetrically. His trapezius is 5/5. Motor Exam: He is moving all extremities antigravity. Upper extremities is 5/5 throughout. On lower extremities, he is 4+/5 proximally in the right and left lower extremity improved from yesterday. He is 5/5 distally. Sensation is diminished in all modalities in the feet to the knees bilaterally, unchanged. DTRs are absent in the lower extremities and trace in the upper extremities. [id number], rapid alternating movements are intact. He does have some asterixis, mild in nature, improved from yesterday. Gait was not tested at this time but he has been ambulating with physical therapy and walker. LABORATORY DATA: This morning, sodium of 131, creatinine of 2.62 which is down from admission, glucose is 114. Total bili is 1.50 down from admission, AST of 42. Ammonia is 114 up from 72 on admission. Myoglobulin is 103 down from 176. Folate of 10.86. TSH of 3.40. B12 of greater than 1450. C-reactive protein of 40.87 on admission. Urine showed 1+ blood, otherwise negative. Flu negative. MRSA negative. Legionella negative. Strep pneumo negative. ASSESSMENT AND PLAN: Mr. Medellin is a 66-year-old gentleman with history of multiple medical problems including chronic alcohol use with cirrhosis of the liver; Kamilah's granulomatosis with chronic kidney disease, stage 4; significant peripheral neuropathy; problems with confusion and weakness and gait difficulties, has been worsening over the last year but in the last month, he seems to have worsened more dramatically. He also has a history of obstructive sleep apnea, has been unable to tolerate it recently and his feels like that he has been much more sleepy since then. Plan is for conservative medical management. At this point, I do not see any acute neurologic issues that need to be addressed. I suspect that his mental status changes are related to underlying multifactorial metabolic encephalopathy related to his kidney disease, his liver disease. Also, he has obstructive sleep apnea and has not been using his CPAP. It is likely contributing to his confusion during the day. Today, he is medically improved and mentally improved. He is wanting to go home. He is ambulating with assistance. At this point, I would recommend continued physical therapy at home. We had a discussion yesterday and I spoke with the about aggressive proactive measures to help prevent falls and to keep him active. He needs to continue to use his CPAP and I would recommend following up with his physician regarding this as far as his chronic kidney disease and cirrhosis is concerned. Continue medical management. He has stopped drinking and is not a smoker. He does have a followup with Dr. Romero as an outpatient and saw him recently and felt that his symptoms were likely related to the underlying medical conditions. I am okay for discharge once he has been cleared medically and he can follow up with Dr. Romero in the clinic for further recommendations. Thank you for the opportunity to participate in his care. [id number]/[facility] #: [id number] HECTOR
--- NOTE | 2017-07-22 05:05 | DS ---
CC: Dr. Ana Shepard; Dr. Zoran Nieves; Dr. Romero * DISCHARGE SUMMARY: DATE OF ADMISSION: 07/19/17 DATE OF DISCHARGE: 07/21/17 PRIMARY CARE PROVIDER: Dr. Ana Shepard out of [place]. CONSULTING NEUROLOGIST: Dr. López. PRIMARY ADMINISTRATIVE LIAISON: Dr. Zoran Nieves. PRIMARY NEUROLOGIST: Dr. Romero. DISCHARGING PROVIDER: SHADY Wheeler SUPERVISING PHYSICIAN: Dr. Colin Moreno * (DICTATED BY SHADY WHEELER) PRIMARY DISCHARGE DIAGNOSES: 1. Encephalopathy - likely multifactorial secondary to liver disease and uremia. 2. Liver cirrhosis with chronic hepatic failure without significant ascites. SECONDARY DISCHARGE DIAGNOSES: 1. Kamilah's syndrome with stage 3 to 4 chronic kidney disease. 2. Obstructive sleep apnea, compliant with CPAP therapy. 3. Hypertension. 4. Chronic obstructive pulmonary disease without acute exacerbation. 5. Hyperlipidemia. DISCHARGE MEDICATIONS: 1. Nebulized albuterol inhaled 4 times daily as needed for shortness of breath. 2. Allopurinol 300 mg p.o. daily. 3. Amiodarone 200 mg p.o. daily. 4. Aspirin 81 mg p.o. daily. 5. Calcium and vitamin D one tablet p.o. daily. 6. Carvedilol 12.5 mg p.o. twice daily. 7. Zyrtec 10 mg p.o. daily. 8. Eszopiclone 1 mg p.o. daily. 9. Zetia 10 mg p.o. daily. 10. Fenofibrate 48 mg p.o. daily. 11. Fluticasone nasal spray 50 mcg sprays intranasal daily. 12. Lasix 40 mg p.o. twice daily. 13. Gabapentin 200 mg p.o. daily. 14. Hydroxyzine 25 mg p.o. daily as needed for anxiety. 15. Lactulose 30 mg p.o. 3 times daily. 16. Levothyroxine 137 mcg p.o. daily. 17. Lovaza 1 g p.o. twice daily. 18. Protonix 40 mg p.o. daily. 19. Potassium chloride 20 mEq p.o. daily. 20. Qvar 2 puffs inhaled twice daily. 21. Spironolactone 25 mg p.o. daily. 22. Stiolto Respimat 2.5 mcg inhaled daily. 23. Vitamin B12 1000 mcg p.o. daily. 24. Vitamin B2 one tablet weekly. Medication changes: 1. Decrease Lasix to 40 mg twice daily from 80 mg twice daily. 2. Start lactulose. 3. Start cetirizine. HOSPITAL IMAGIN. CT of the brain showed mild sinus mucosal thickening and otherwise within normal limits without any acute process. 2. Chest x-ray, possible mild pulmonary edema. HOSPITAL COURSE: This is a 66-year-old gentleman with history of Aamir's and associated chronic kidney disease as well as COPD, peripheral neuropathy affecting his legs to the level of the knees as well as obstructive sleep apnea , anxiety, hypertension, hyperlipidemia, and GERD and relatively recent diagnosis of cirrhosis, who presented to the emergency department via transfer from [facility] with complaints of weakness and a recent fall. The patient's has noted some progressive weakness and confusion over the last couple of months but escalating over the last couple of days. He was seen by Dr. Romero, neurologist with the same complaints just a couple of days prior to his acute hospitalization. An MRI of the brain had been performed, which was essentially normal. There was concern on the part of the patient and his as to whether his symptoms may be related to Parkinson's disease as he does have a positive family history for this. Parkinson's was thought to be less likely in his symptoms, more likely due to a constellation of metabolic disturbances secondary to his chronic medical conditions. The event that prompted admission was that the patient had fallen earlier in the day but then his found him with his walker stuck in a corner, unable to figure out how to navigate out of the corner in their house. He was initially evaluated at [facility] and then transferred to our emergency department for neurologic evaluation. Initial labs showed an essentially normal CBC with the exception of a mild anemia, hemoglobin of 12.1 with normocytosis. His BUN was 56 with a creatinine of 3.1, which is slightly above his baseline. He had a total bilirubin of 1.7, transaminases just mildly elevated, and INR of 1.14, CRP of 40, normal TSH, normal urinalysis. The patient was subsequently admitted for further evaluation. He underwent a CT of the brain, which was unremarkable. Review of his MRI completed just earlier this week was unremarkable. He was seen by neurologist, Dr. López who felt that Dr. Romero's assessment from earlier this week was appropriate and it seemed to be unlikely that his symptoms were due to an acute neurologic syndrome or event more likely constellation of decline related to his chronic medical conditions. Ammonia levels were checked, which were moderately elevated up to 74. The patient was subsequently started on lactulose with some improvement in his mental status. When probed further about his liver history, the patient endorsed a long history of drinking but has been sober for about 6 months now. He was seen by a [employer] flatbed truck driver over the summer with the intention of a routine colonoscopy, became more complicated when gastric polyps were identified on an upper GI series. There was mention of possible cirrhotic appearing liver at that time. Based on findings of mild hypoalbuminemia, mildly elevated INR, and elevated ammonia with known cirrhosis by prior liver imaging, at least a portion of the patient's initial presentation is likely due to hepatic encephalopathy improving with initiation of lactulose. The patient also looked somewhat dehydrated and his diuretics were held during his hospital day with some improvement in his renal function. Uremia may have been contributing to his changes in mental status and as that improved so did his mental status in coordination. At the time of discharge, the patient was able to navigate the use of a walker without difficulty. Speech was of normal idalmis and his understanding of his current medical condition was good. DISPOSITION AND FOLLOWUP PLAN: The patient is being discharged to home where he lives with his . Recommend medication changes as outlined above, most specifically starting lactulose. The cetirizine was added as the patient was complaining of congestion, which led him to feel claustrophobic while using his CPAP machine and initiation of an antihistamine seemed to help. Regarding his liver disease, we would recommend follow up with his [employer] flatbed truck driver Dr. Nieves for further monitoring and medical optimization. The patient has been referred for home nursing services including physical therapy and occupational therapy. The patient will require close followup with his primary care provider regarding this hospitalization and with Dr. Romero on an as-needed basis although as outlined above this does not appear to be an acute neurologic process. SHADY WHEELER [id number]/[facility] #: [id number] [facility]
== END 2017-07-21 12:26 | disposition home health service (06) | DRG 442 ==
LOC: ED 12:40 → MEDTELE 13:49 → OBSVTOIN 07-20 11:21
PROVIDERS: ADMIT Internal Medicine; ATTEND Internal Medicine
DX: K72.10 Chronic hepatic failure without coma (principal); M31.31 Wegener's granulomatosis with renal involvement; N18.4 Chronic kidney disease, stage 4 (severe); G62.9 Polyneuropathy, unspecified; I45.10 Unspecified right bundle-branch block; I12.9 Hypertensive chronic kidney disease with stage 1 through stage 4 chronic kidney disease, or unspecified chronic kidney disease; K70.30 Alcoholic cirrhosis of liver without ascites; E78.5 Hyperlipidemia, unspecified; K31.7 Polyp of stomach and duodenum; J44.9 Chronic obstructive pulmonary disease, unspecified; Z96.652 Presence of left artificial knee joint; K21.9 Gastro-esophageal reflux disease without esophagitis; D64.9 Anemia, unspecified; G47.33 Obstructive sleep apnea (adult) (pediatric); F41.9 Anxiety disorder, unspecified; Z91.19 Patient's noncompliance with other medical treatment and regimen; Z87.891 Personal history of nicotine dependence; Z90.49 Acquired absence of other specified parts of digestive tract; Z88.8 Allergy status to other drugs, medicaments and biological substances; Z93.3 Colostomy status; Z79.82 Long term (current) use of aspirin
CPT/HCPCS: 36415; 70450; 71010; 80048; 80053; 80076; 81003; 81015; 82085; 82140; 82550; 82607; 82746; 83516; 83874; 84443; 85025; 85610; 85652; 86038; 86140; 86160; 86255; 87070; 87086; 87205; 87502; 87641; 87899; A9270-GY; G0378; G8978-GP-CK; G8979-GP-CI; J1644